=== PATIENT | female | born 1985 | race Caucasian/White ===

== ENCOUNTER 2016-06-15 01:57 | Emergency (ER) | payer MEDICARE, MEDICAID ==
[2016-06-15 02:37] VITALS: BMI 52.7
[2016-06-15] MEDS ORDERED: KETOROLAC TROMETH 30 MG/ML VIAL IM ONE (03:03)
[2016-06-15] MEDS ORDERED: METOCLOPRAMIDE 10 MG/2 ML VIAL IM ONE (03:03)
[2016-06-15] MEDS ORDERED: DIPHENHYDRAMINE 50 MG/ML VIAL IM ONE (03:03)
--- NOTE | 2016-06-15 03:07 | EDPRACDOC ---
- General Information Chief Complaint: Headache Stated Complaint: HEADACHE Time Seen by Provider: 06/15/16 02:55 Information Source: Patient Home Medications: Home Medications Tizanidine HCl [Zanaflex] 4 mg PO TID PRN 06/26/12 Pregabalin [Lyrica] 150 mg PO TID 09/25/13 Clonazepam 0.5 - 1 mg PO BID 10/06/13 Omeprazole Magnesium [Prilosec Otc] 20 mg PO BID 12/28/13 Lurasidone HCl [Latuda] 20 mg PO DAILY 06/12/14 Chlorthalidone 25 mg PO DAILY 06/20/14 Doxycycline [Vibramycin] 100 mg PO BID 07/30/14 Fluoxetine [Prozac] 60 mg PO DAILY 11/09/15 Lurasidone HCl [Latuda] 80 mg PO QHS 11/09/15 Zolpidem Tartrate [Ambien] 10 mg PO QHS 11/09/15 Butalb/Acetamin/Caffeine [Fioricet] 1 each PO Q4-6H #7 tab 06/15/16 Diphenhydramine [Benadryl] 25 mg PO Q6 #10 cap 06/15/16 Metoclopramide HCl [Reglan] 10 mg PO BID #10 tablet 06/15/16 Ondansetron [Zofran Odt] 4 mg PO Q6H #14 tab.rapdis 06/15/16 Allergies/Adverse Reactions: Allergies Allergy/AdvReac Type Severity Reaction Status Date / Time amoxicillin [Amoxicillin] Allergy Severe Hives* Verified 06/15/16 02:37 doxepin [Doxepin] Allergy Severe Irregular Verified 06/15/16 02:37 Heartbeat Penicillins Allergy Severe Hives* Verified 06/15/16 02:37 clarithromycin [From Biaxin] Allergy Intermediate Rash-Genera Verified 06/15/16 02:37 lized latex Allergy Intermediate Rash-Genera Verified 06/15/16 02:37 lized carbamazepine [From Tegretol] Allergy See Verified 06/15/16 02:37 Comments - History of Present Illness Onset: 24 days HPI: PT PRESENTS TO ED WITH ACUTE ON CHRONIC HEAD THAT SHE HAS HAD IN THE PAST AND IS THE SAME, NO KNEW SYMPTOMS AT THIS TIME. 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 WHEN ASKED WHAT THE PT USES AT HOME FOR PAIN CONTROL SHE STATES EXCEDRIN MIGRAINE. SHE STATES SHE WAS TOLD BY [facility] THAT THE MEDICATION SHE WAS STARTED ON WOULD TAKE SEVERAL DAYS TO TAKE AFFECT AND FOR HER TO GET RELIEF. Location: Reports: Generalized Pain Quality: Reports: Moderate, Like Previous Headaches Prior work up: Reports: LP (YESTERDAY AT [facility]), Neurologist Relevant History of: Reports: Known Headache disorder, Other (NEW DIAGNOSIS OF PSUEDOTUMOR CEREBRI) Associated Signs and Symptoms: Reports: Chronic Headaches, Nausea/Vomiting ( NUASEA NO VOMITING) ED Past Medical History - History Reviewed Yes Nurses notes reviewed and agree except as marked Travel Outside of [place] in the Last 3 Months?: No - Patient Medical History Neurological History: Reports: Other (PSEUDOTUMOR CEREBRI) Cardiac History: Reports: Hypertension, Hypercholesterolemia. Denies: CABG GI/ History: Denies: Kidney (Renal Surgery) Psychological History: Reports: Depression, Anxiety, Bipolar Disorder Systemic History: Reports: Diabetes. Denies: Cancer Additional Past Medical History: Chronic Back Pain Surgical History: Reports: Cholecystectomy. Denies: CABG, Hysterectomy, Tonsillectomy/Adnoidectomy - Family Medical History Reports: Hypertension, Diabetes, Cancer, Cardiac Disorders. Denies: Stroke - Social Medical History Smoking Status: Never smoker ETOH: None Substance Abuse: None Lives With: Other Lives In: Home EDM Review of Systems - Review of Systems ROS Negative Except as Marked: Yes All systems reviewed and were negative except as marked Constitutional: No Symptoms Reported. negative: Fever, Chills, Weakness, Fatigue, Loss of Appetite Eyes: No Symptoms Reported. negative: Redness, Blurred Vision, Double Vision, Discharge, Pain, Light Sensitive, Photophobia Ears: No Symptoms Reported. negative: Pain, Hearing Loss, Drainage, Ear Pulling Throat: No Symptoms Reported. negative: Pain, Swelling Nose: No Symptoms Reported. negative: Congestion, Bleeding, Discharge, Injection, Swelling, Deformity, Ecchymosis, Tender, Abrasion, Laceration Mouth: No Symptoms Reported. negative: Pain, Drooling Respiratory: No Symptoms Reported. negative: Cough, Brassy Cough, Barky Cough, Shortness of Breath, Wheezing, Hemoptysis Cardiovascular: No Symptoms Reported. negative: Chest Pain, Palpitations, Syncope, Edema, Orthopnea, PND, Skin Mottling, Cyanosis Gastrointestinal: No Symptoms Reported. negative: Pain, Constipation, Nausea, Vomiting, Diarrhea, Melena, Formula Intolerance Genitourinary: No Symptoms Reported. negative: Dysuria, Hematuria, Frequency, Discharge, Bleeding, Testicular Pain, Neurological: Headache. negative: Dizziness, Gait Difficulty, Numbness, Seizure , Speech Difficulty, Weakness Musculoskeletal: No Symptoms Reported. negative: Neck, Chestwall, Ribs, Back, Shoulder, Arm, Elbow, Forearm, Wrist, Hand, Pelvis, Hip, Femur, Knee, Leg, Ankle , Foot Integumentary: No Symptoms Reported. negative: Itching, Rash, Bruising, Wound Allergic/Immunologic: No Symptoms Reported. negative: Hives, Itching Hematologic: No Symptoms Reported. negative: Lymphadenopathy, Easy Bruising, Easy Bleeding Endocrine: No Symptoms Reported. negative: Weight Gain, Weight Loss Psychiatric: No Symptoms Reported. negative: Anxiety, Depression, Hallucinations, Insomnia, Suicidal - Physical Exam Constitutional: Alert (Awake), No apparent distress Oriented to: Time, Person, Place Last recorded Vital Signs: Last Vital Signs Temp 98.7 F 06/15/16 02:29 Pulse 93 06/15/16 02:29 Resp 20 06/15/16 02:29 BP 172/101 H 06/15/16 02:29 Pulse Ox 98 06/15/16 02:29 Oxygen Pulse Oxygen Saturation 98 O2 Device Room Air Oxygen Flow Rate Fraction of Inspired Oxygen ( FIO2) - HEENT Head: Normal ( normocephalic) Eye Exam: Normal (PERRL, EOMI, Sclera white) Oropharynx: Normal (Pharynx:Moist without exudate,Gums-no swelling) Tympanic Membrane: Normal ENT EAC: Normal TMJ: Normal Nose: No Symptoms Reported (septum midline) Neck: Normal (FROM, trachea at midline) - Respiratory/Cardiovascular Respiratory: Normal - CTA (BBS clear to auscultation without adventitious sounds ) Cardiovascular: Normal (RRR without murmur, gallop or rub) - GI Auscultation: Normal (NABS) Palpation: Normal (Soft,No rebound or guarding, non distended) Tenderness: Non tender Graf's Sign: Negative - Bladder: Normal - Musculoskeletal Back: Normal (Non-Tender) Extremities: Normal (Normal tone, Pulses 2+ No cyanosis or edema, FROM) - Integumentary Skin: Normal, Warm, Dry Lymphatics: Normal (no adenopathy) - Neurologic Memory Impaired: Normal Motor Function: Normal (Normal tone, Pulses 2+ No cyanosis or edema, FROM) Cranial Nerve: Normal (CN II-X11 intact sensation, strength 5/5) Cerebellar: Normal Mood Description: Normal Perception: Normal - Differential Diagnosis Migraine, Hypertensive, Muscular Contraction, Pseudotumor Cerebri, Acute Benign Cephalgia Decision Time to Discharge: 03:11 - Departure Disposition: Home Condition: Stable Final Diagnosis: Headache Instructions: Acute Headache (ED) Education/Counseling Given To: Patient Education/Counseling Given Regarding: Diagnosis, Treatment, Prognosis, Follow Up Referrals: [Primary Care Provider] - One Week Prescriptions: Butalb/Acetamin/Caffeine [Fioricet] 1 each PO Q4-6H #7 tab Diphenhydramine [Benadryl] 25 mg PO Q6 #10 cap Metoclopramide HCl [Reglan] 10 mg PO BID #10 tablet Ondansetron [Zofran Odt] 4 mg PO Q6H #14 tab.rapdis Additional Instructions: FOLLOW UP WITH YOUR NEUROLOGIST AT [facility] FOR FURTHER EVALUATION.
[2016-06-15 03:46] VITALS: BP 168/94; PULSE 91; TEMP 98.6
== END 2016-06-15 03:45 | disposition home or self-care (01) ==
LOC: ED 01:57
DX: R51 Headache (principal)
CPT/HCPCS: 96372; 99283; J1200; J1885; J2765